=== PATIENT | female | born 1985 | race Two or more races ===

== ENCOUNTER 2024-04-30 06:31 | Day surgery (SDC) | payer OTHER ==
[2024-04-30] MEDS ORDERED: ONDANSETRON HCL 2 MG/ML VIAL IV ONE (11:15)
[2024-04-30] MEDS ORDERED: fentaNYL CITRATE 50 MCG/ML AMPUL IV PUSH ONE (11:15)
[2024-04-30] MEDS ORDERED: DIPHENHYDRAMINE HCL 50 MG/ML VIAL 1ML IV ONE (11:15)
[2024-04-30] MEDS ORDERED: MIDAZOLAM HCL 2 MG/2 ML VIAL IV ONE (11:15)
== END 2024-04-30 12:50 | disposition home or self-care (01) ==
LOC: AMB-ENDOS 06:31
PROVIDERS: ATTEND Colon & Rectal Surgery
DX: K57.30 Diverticulosis of large intestine without perforation or abscess without bleeding (principal); R19.4 Change in bowel habit; D12.2 Benign neoplasm of ascending colon